=== PATIENT | male | born 1955 | race Caucasian/White ===

== ENCOUNTER → 2020-02-29 | Outpatient (CLI) | payer MEDICARE, MEDICAID | END | disposition home or self-care (01) | LOC: RAD 12:58 | DX: M47.816 Spondylosis without myelopathy or radiculopathy, lumbar region (principal); M47.817 Spondylosis without myelopathy or radiculopathy, lumbosacral region; M48.061 Spinal stenosis, lumbar region without neurogenic claudication; M48.07 Spinal stenosis, lumbosacral region ==

== ENCOUNTER 2020-03-08 11:01 | Emergency (ER) | payer MEDICARE, MEDICAID ==
[~2020-03-08] VITALS: Ht 190.5 cm; Wt 88.5 kg
[2020-03-08] MEDS ORDERED: PREDNISONE50 MG PO (12:15)
[2020-03-08] MEDS ORDERED: CYCLOBENZAPRINE10 MG PO (12:15)
== END 2020-03-08 12:26 | disposition home or self-care (01) ==
LOC: ED 11:01
DX: M54.31 Sciatica, right side (principal)

== ENCOUNTER → 2020-03-10 | Outpatient (CLI) | payer MEDICARE, MEDICAID ==
[~2020-03-10] MED LIST: CYCLOBENZAPRINE10 MG PO; PREDNISONE50 MG PO
== END | disposition home or self-care (01) ==
LOC: US 09:38
PROVIDERS: ATTEND Registered Nurse Flight
DX: Z13.6 Encounter for screening for cardiovascular disorders (principal); I10 Essential (primary) hypertension

== ENCOUNTER → 2020-11-10 | Day surgery (SDC) | payer MEDICARE, MEDICAID ==
[~2020-11-10] VITALS: Ht 190.5 cm; Wt 88.5 kg
[~2020-11-10] MED LIST changes: +LISINOPRIL20 MG PO; +OMEPRAZOLE40 MG PO; +PERCOCET 5-3251 EACH PO
[2020-11-10 07:30] VITALS: BP 110/50
[2020-11-10 09:16] VITALS: BP 100/54
[2020-11-10 09:31] VITALS: BP 92/61
[2020-11-10 09:46] VITALS: BP 101/56
== END | disposition home or self-care (01) ==
LOC: SDC 11-06 09:30
PROVIDERS: ATTEND Surgery
DX: C44.619 Basal cell carcinoma of skin of left upper limb, including shoulder (principal); K29.50 Unspecified chronic gastritis without bleeding; K21.00 Gastro-esophageal reflux disease with esophagitis, without bleeding; I10 Essential (primary) hypertension; F17.218 Nicotine dependence, cigarettes, with other nicotine-induced disorders; Z90.49 Acquired absence of other specified parts of digestive tract; Z79.899 Other long term (current) drug therapy

== ENCOUNTER → 2021-09-28 | Outpatient (CLI) | payer MEDICARE, MEDICAID ==
[~2021-09-28] MED LIST changes: +ZOCOR20 MG PO
== END | disposition home or self-care (01) ==
LOC: CARD 09-26 10:00
PROVIDERS: ATTEND Internal Medicine Cardiovascular Disease
DX: I20.8 Other forms of angina pectoris (principal)

== ENCOUNTER → 2022-06-10 | Outpatient (CLI) | payer MEDICARE, MEDICAID | LOC: US 08:09 | PROVIDERS: ATTEND Family Medicine | DX: K76.0 Fatty (change of) liver, not elsewhere classified (principal); R10.11 Right upper quadrant pain ==